=== PATIENT | male | born 1975 | race Caucasian/White ===

== ENCOUNTER → 2019-12-23 | Emergency (ER) | payer MEDICAID ==
[~2019-12-23] VITALS: Ht 188 cm; Wt 77.1 kg
[~2019-12-23] MED LIST: ACETAMINOPHEN 325 MG TAB PO ONE; LIDOCAINE 2% (LOCAL ANESTH.) PF 5ml SDV IJ ONE; LIDOCAINE 2%HCL (LOCAL ANESTH.) INJ 10ml MDV IJ ONE; NEOMYCIN-BACITRACIN-POLYM UNITDOSE PKG TOP OINT TOP ONE; SODIUM CHLORIDE 0.9% 1,000 ML IVB ONE; TETANUS-DIPTH-ACEL PERTUSSIS 0.5ML SYRG IM ONE; cefTRIAXone 1GM/50ML D5W 50 ML IV ONE
[2019-12-23 13:52] LABS: Basophils # (auto) 0.1 uL; Eosinophils # (auto) 0.1 uL; Lymphocytes # (auto) 1.8 uL; Monocytes # (auto) 0.7 uL; Neutrophils # (auto) 10.6 uL; Neutrophils % (auto) 80.2 % (37.0-80.0); White Blood Cell 13.2 10^3/uL (4.4-10.8)
[2019-12-23 13:53] LABS: Basophils % (auto) 0.7 % (0.0-2.0); Eosinophils % (auto) 0.7 % (0.0-7.0); Hematocrit 41.8 % (41.0-53.0); Hemoglobin 14.2 g/dL (13.5-17.5); Lymphocytes % (auto) 13.4 % (10.0-50.0); Mean Corpuscular Hemoglobin 33.9 pg (28.0-32.0); Mean Corpuscular Volume 99.7 fL (80.0-100.0); Platelet Count (auto) 202 10^3/uL (140-450); Red Blood Cells 4.19 10^6/uL (4.5-5.90); Red Cell Distribution Width 12.4 % (11.8-14.3)
[2019-12-23 14:12] LABS: Albumin 3.6 g/dL (3.4-5.0); Anion Gap 3 (5-15); Blood Urea Nitrogen 16 mg/dL (7-18); Calcium 7.9 mg/dL (8.5-10.1); Carbon Dioxide 28 mmol/L (21-32); Chloride 110 mmol/L (98-107); Glucose 91 mg/dL (74-106); Magnesium 2.1 mg/dL (1.6-2.6); Potassium 4.7 mmol/L (3.5-5.1); Sodium 141 mmol/L (136-145)
[2019-12-23 14:18] LABS: Alanine Aminotransferase 19 U/L (16-61); Alkaline Phosphatase 45 U/L (45-117); Aspartate Aminotransferase 17 U/L (15-37); Bilirubin, Total 0.4 mg/dL (0.2-1.0); GFR African American 97 mL/min; GFR Non-African American 81 mL/min; Total Protein 6.4 g/dL (6.4-8.2)
[2019-12-23 16:37] LABS: Amphetamine Screen, Urine NEGATIVE (NEGATIVE); Barbiturate Scree,Urine NEGATIVE (NEGATIVE); Benzodiazephine Screen, Urine NEGATIVE (NEGATIVE); Cannabinoid Screen, Urine POSITIVE (NEGATIVE); Cocaine Screen, Urine NEGATIVE (NEGATIVE); Opiate Scree,Urine NEGATIVE (NEGATIVE); Phencyclidine Screen, Urine NEGATIVE (NEGATIVE)
[2019-12-23 16:39] LABS: Urine Bacteria NONE SEEN /hpf (None Seen); Urine Blood Negative /uL (Negative); Urine Specific Gravity 1.019 (1.001-1.035); Urine WBC 3 /hpf (0 - 3)
[2019-12-23 21:00] VITALS: BP 100/62
== END | disposition home or self-care (01) ==
LOC: ER 12:06
DX: S62.631A Displaced fracture of distal phalanx of left index finger, initial encounter for closed fracture (principal); S61.211A Laceration without foreign body of left index finger without damage to nail, initial encounter; R00.1 Bradycardia, unspecified; I95.9 Hypotension, unspecified; W26.8XXA Contact with other sharp object(s), not elsewhere classified, initial encounter; Y93.89 Activity, other specified; Y92.89 Other specified places as the place of occurrence of the external cause; Y99.8 Other external cause status
CPT/HCPCS: 12001; 36415; 73140; 80053; 80307; 81001; 83735; 84484; 85025; 90471; 90715; 96361; 96365; 99284; J0696; J2001; J7030